=== PATIENT | female | born 2000 | race American Indian/Alaskan Native ===

== ENCOUNTER 2022-02-16 00:21 | Emergency (ER) | payer SELFPAY ==
[2022-02-16 00:58] VITALS: BP 114/73
--- NOTE | 2022-02-16 01:57 | XRay Report ---
XR chest routine 2V INDICATION / CLINICAL INFORMATION: CHEST PAIN. COMPARISON: None available. FINDINGS: SUPPORT DEVICES: None. HEART /PULMONARY VASCULATURE: No significant abnormality. LUNGS / PLEURA: No significant pulmonary or pleural abnormality. No pneumothorax. ADDITIONAL FINDINGS: No significant additional findings. IMPRESSION: 1. No acute findings. Signer Name: Nazario Carrasco MD Signed: 02/16/2022 1:53 AM Workstation Name: [id number]
--- NOTE | 2022-02-16 17:54 | Electrocardiograph Report ---
[facility] Test Date: 2022-02-16 Test Time: 00:38:05 Pat Name: KENNETH MANCILLA Department: Room: Gender: F [employer]: NURSE : 2000 Requested By: WILBER RANDLE Order Number: [id number] Reading MD: Cooper Lagunas Measurements Intervals [place] Rate: 62 P: 59 OK: 140 QRS: 51 QRSD: 80 T: 38 QT: 381 QTc: 389 Interpretive Statements Sinus rhythm ST elev, consistent with normal early repol pattern No previous ECG available for comparison Electronically Signed On 02-16-2022 17:53:50 EDT by Cooper Lagunas
== END 2022-02-16 06:14 | disposition left against medical advice (07) ==
LOC: ED 00:21
DX: R07.9 Chest pain, unspecified (principal); Z53.21 Procedure and treatment not carried out due to patient leaving prior to being seen by health care provider
CPT/HCPCS: 71046; 93005